=== PATIENT | female | born 1970 | race Caucasian/White ===

== ENCOUNTER → 2023-04-14 10:13 | Outpatient (BNVA) | payer SELFPAY | PROVIDERS: Family Provider Nurse Practitioner Family; PCP Nurse Practitioner Family; Visit Provider Nurse Practitioner Family | DX: Z13.220 Encounter for screening for lipoid disorders (principal); Z98.51 Tubal ligation status; Z78.9 Other specified health status; Z13.1 Encounter for screening for diabetes mellitus | CPT/HCPCS: 80053; 80061 ==